=== PATIENT | female | born 1985 | race Caucasian/White ===

== ENCOUNTER 2018-06-08 13:06 | Inpatient (IN) | payer OTHER ==
[~2018-06-08] VITALS: Ht 157.5 cm; Wt 52.9 kg
[~2018-06-08 13:06] MED LIST: [UNRECOGNIZED DRUG - OTHER]
[2018-06-08 16:37] VITALS: BP 117/69
[2018-06-08] MEDS ORDERED: TYLENOL REGULA325 MG PO (17:38)
[2018-06-08] MEDS ORDERED: ELIQUIS5 MG PO (17:41)
[2018-06-08] MEDS ORDERED: PEPCID20 MG PO (17:42)
[2018-06-08] MEDS ORDERED: NEURONTIN300 MG PO (17:43)
[2018-06-08] MEDS ORDERED: ZOSYN 3.373.375 GM/5 IV (17:45)
[2018-06-08] MEDS ORDERED: SYNTHROID75 MCG PO (17:46)
[2018-06-08] MEDS ORDERED: OXYCODONE HCL10 MG PO (17:47)
[2018-06-08] MEDS ORDERED: LUBRICANT EYE D10 ML BOTH EYES (17:50)
[2018-06-08] MEDS ORDERED: MIRALAX17 GM PO (17:51)
[2018-06-08] MEDS ORDERED: NICODERM CQ1 EACH TD (17:53)
[2018-06-08] MEDS ORDERED: WELLBUTRIN XL300 MG PO (17:53)
[2018-06-08 23:33] VITALS: BP 120/67
[2018-06-09 05:19] VITALS: BP 119/83
[2018-06-09 06:57] LABS: HEMOGLOBIN 13.8 G/DL (11.9-15.5); MCH 28.6 PG (29.0-34.0); MCHC 32.9 G/DL (30.0-36.0); PLATELET COUNT 322 K/uL (156-360); RBC DIS.WIDTH-CV 15.9 % (11.8-14.6); RBC DIS.WIDTH-SD 46.1 % (39-53); RED BLOOD COUNT 4.83 M/uL (3.80-5.20); WHITE BLOOD COUNT 14.8 K/uL (4.1-10.2)
[2018-06-09 07:16] LABS: ALBUMIN 4.2 G/DL (3.2-4.8); ALKALINE PHOSPHATASE 90 IU/L (3-129); ALT (GPT) 114 IU/L (3-49); AST (GOT) 29 IU/L (2-34); CHLORIDE 99 MEQ/L (99-109); CREATININE 0.7 MG/DL (0.6-1.3); GFR ESTIMATE (CALCULATED) > 59 mL/min/; GLUCOSE 89 mg/dL (70-99); POTASSIUM 4.4 MEQ/L (3.7-5.4); SODIUM 136 MEQ/L (136-147); TOTAL PROTEIN 6.6 G/DL (6.4-8.3); UREA NITROGEN (BUN) 18 mg/dL (9-23)
[2018-06-09 15:32] VITALS: BP 121/78
[2018-06-10 05:30] VITALS: BP 115/73
[2018-06-10 15:39] VITALS: BP 112/78
[2018-06-10 15:55] VITALS: BP 150/65
[2018-06-11 04:09] VITALS: BP 120/62
[2018-06-11 05:51] LABS: BASOPHIL (%) 0.2 % (0-1); EOSINOPHIL (%) 2.3 % (0-5); EOSINOPHIL COUNT 0.2 K/uL (0-0.3); HEMOGLOBIN 12.3 G/DL (11.9-15.5); IMMATURE GRANULOCYTE (%) 0.6 % (0.0-0.7); LYMPHOCYTE (%) 28.9 % (15-42); LYMPHOCYTE COUNT 2.6 K/uL (1.0-2.8); MCHC 33.2 G/DL (30.0-36.0); MCV 87.3 FL (83-99); MONOCYTE (%) 10.1 % (3-12); MONOCYTE COUNT 0.9 K/uL (0-0.8); NEUTROPHIL (%) 57.9 % (45-76); NEUTROPHIL COUNT 5.2 K/uL (1.8-6.4); PLATELET COUNT 273 K/uL (156-360); RBC DIS.WIDTH-CV 15.9 % (11.8-14.6); RBC DIS.WIDTH-SD 49.1 % (39-53); RED BLOOD COUNT 4.24 M/uL (3.80-5.20); WHITE BLOOD COUNT 8.9 K/uL (4.1-10.2)
[2018-06-11 06:57] LABS: CHLORIDE 101 MEQ/L (99-109); CREATININE 0.7 MG/DL (0.6-1.3); GFR ESTIMATE (CALCULATED) > 59 mL/min/; GLUCOSE 103 mg/dL (70-99); POTASSIUM 4.1 MEQ/L (3.7-5.4); SODIUM 136 MEQ/L (136-147); UREA NITROGEN (BUN) 14 mg/dL (9-23)
[2018-06-11 15:26] VITALS: BP 126/67
[2018-06-12 05:50] VITALS: BP 127/81
[2018-06-12 15:14] VITALS: BP 120/76
[2018-06-13 04:57] VITALS: BP 134/81
[2018-06-13 15:22] VITALS: BP 117/76
[2018-06-14 06:01] VITALS: BP 118/75
[2018-06-14 15:22] VITALS: BP 125/76
[2018-06-15 06:00] VITALS: BP 105/74
[2018-06-15 16:00] VITALS: BP 118/83
[2018-06-16 05:17] VITALS: BP 112/72
[2018-06-16 06:32] LABS: HEMATOCRIT 37.2 % (36.0-46.0); HEMOGLOBIN 12.1 G/DL (11.9-15.5); MCH 28.7 PG (29.0-34.0); MCHC 32.5 G/DL (30.0-36.0); MCV 88.2 FL (83-99); PLATELET COUNT 243 K/uL (156-360); RBC DIS.WIDTH-CV 15.5 % (11.8-14.6); RBC DIS.WIDTH-SD 49.1 % (39-53); RED BLOOD COUNT 4.22 M/uL (3.80-5.20); WHITE BLOOD COUNT 6.1 K/uL (4.1-10.2)
[2018-06-16 06:58] LABS: ALKALINE PHOSPHATASE 74 IU/L (3-129); ALT (GPT) 37 IU/L (3-49); AST (GOT) 24 IU/L (2-34); CHLORIDE 103 MEQ/L (99-109); CREATININE 0.7 MG/DL (0.6-1.3); GFR ESTIMATE (CALCULATED) > 59 mL/min/; GLUCOSE 94 mg/dL (70-99); SODIUM 137 MEQ/L (136-147); TOTAL PROTEIN 6.1 G/DL (6.4-8.3); UREA NITROGEN (BUN) 14 mg/dL (9-23)
[2018-06-16 07:00] LABS: TOTAL BILIRUBIN 0.7 MG/DL (0.0-1.0)
[2018-06-16 15:56] VITALS: BP 125/87
[2018-06-17 05:16] VITALS: BP 109/67
[2018-06-17 15:48] VITALS: BP 131/78
[2018-06-18 05:54] VITALS: BP 129/87
[2018-06-18 15:07] VITALS: BP 132/88
[2018-06-19 06:25] VITALS: BP 114/81
[2018-06-19 15:27] VITALS: BP 129/65
[2018-06-20 05:14] VITALS: BP 127/86
[2018-06-20 16:00] VITALS: BP 133/87
[2018-06-21 05:02] VITALS: BP 134/76
[2018-06-21 15:48] VITALS: BP 124/77
[2018-06-22 05:06] VITALS: BP 131/83
[2018-06-22 15:41] VITALS: BP 136/88
[2018-06-23 06:34] VITALS: BP 115/84
[2018-06-23 06:38] LABS: INTER. NORMALIZED RATIO 1.1
[2018-06-23 06:40] LABS: PTT 32.8 SEC (25-37)
[2018-06-23 15:55] VITALS: BP 124/60
[2018-06-24 06:06] VITALS: BP 108/68
[2018-06-24 06:35] LABS: HEMATOCRIT 34.6 % (36.0-46.0); HEMOGLOBIN 11.5 G/DL (11.9-15.5); MCHC 33.2 G/DL (30.0-36.0); MCV 87.2 FL (83-99); PLATELET COUNT 223 K/uL (156-360); RBC DIS.WIDTH-CV 14.9 % (11.8-14.6); RBC DIS.WIDTH-SD 47.8 % (39-53); RED BLOOD COUNT 3.97 M/uL (3.80-5.20); WHITE BLOOD COUNT 4.9 K/uL (4.1-10.2)
[2018-06-24 06:59] LABS: ALBUMIN 4.2 G/DL (3.2-4.8); ALKALINE PHOSPHATASE 86 IU/L (3-129); ALT (GPT) 37 IU/L (3-49); AST (GOT) 24 IU/L (2-34); CHLORIDE 104 MEQ/L (99-109); CREATININE 0.6 MG/DL (0.6-1.3); GFR ESTIMATE (CALCULATED) > 59 mL/min/; GLUCOSE 94 mg/dL (70-99); POTASSIUM 3.7 MEQ/L (3.7-5.4); SODIUM 139 MEQ/L (136-147); TOTAL PROTEIN 6.4 G/DL (6.4-8.3); UREA NITROGEN (BUN) 8 mg/dL (9-23)
[2018-06-24 15:17] VITALS: BP 120/72
[2018-06-25 03:40] VITALS: BP 129/70
[2018-06-25] MEDS ORDERED: PEPCID20 MG PO (10:16)
[2018-06-25] MEDS ORDERED: NICODERM CQ1 EACH TD (10:16)
[2018-06-25] MEDS ORDERED: LUBRICANT EYE D10 ML RIGHT EYE (10:16)
[2018-06-25] MEDS ORDERED: SYNTHROID75 MCG PO (10:16)
[2018-06-25] MEDS ORDERED: GABAPENTIN600 MG PO (10:16)
[2018-06-25] MEDS ORDERED: ROXICODONE5 MG PO (15:38)
[2018-06-25 15:46] VITALS: BP 137/74
== END 2018-06-25 16:15 | disposition home health service (06) | DRG 91 ==
LOC: 3WEST 13:06 → ENPENDDIS 06-24 → EDPENDDISDT 06-25 → 3WEST 06-25 16:15
PROVIDERS: Family Medicine Sports Medicine; Physical Medicine & Rehabilitation Pain Medicine; Radiology Diagnostic Radiology
PROC: F07M0ZZ Range of Motion and Joint Mobility Treatment of Musculoskeletal System - Whole Body (ICD-10-PCS; principal; 2018-06-08)
DX: G93.1 Anoxic brain damage, not elsewhere classified (principal); G08 Intracranial and intraspinal phlebitis and thrombophlebitis; I76 Septic arterial embolism; F31.9 Bipolar disorder, unspecified; R26.9 Unspecified abnormalities of gait and mobility; G51.0 Bell's palsy; M62.82 Rhabdomyolysis; M21.371 Foot drop, right foot; E03.9 Hypothyroidism, unspecified; D64.9 Anemia, unspecified; I82.C19 Acute embolism and thrombosis of unspecified internal jugular vein; Z79.01 Long term (current) use of anticoagulants; M62.838 Other muscle spasm; M60.9 Myositis, unspecified; K11.20 Sialoadenitis, unspecified; L03.221 Cellulitis of neck; F17.200 Nicotine dependence, unspecified, uncomplicated; I87.8 Other specified disorders of veins; I80.9 Phlebitis and thrombophlebitis of unspecified site; F60.3 Borderline personality disorder
CPT/HCPCS: 70487; 71045; 73610; 73630; 75989; 80048; 80053; 85025; 85027; 85610; 85651; 85730; 86140; 87641; 92507 GN; 93970; 96125 GN; 97110 GO; 97530 GP; G0515 GN; G0515 GO; J2543; J7050

== ENCOUNTER → 2018-06-25 | Outpatient (CLI) | payer OTHER ==
[~2018-06-25] MED LIST changes: +ELIQUIS5 MG PO; +GABAPENTIN600 MG PO; +LUBRICANT EYE D10 ML BOTH EYES; +LUBRICANT EYE D10 ML RIGHT EYE; +MIRALAX17 GM PO; +NEURONTIN300 MG PO; +NICODERM CQ1 EACH TD; +OXYCODONE HCL10 MG PO; +PEPCID20 MG PO; +ROXICODONE5 MG PO; +SYNTHROID75 MCG PO; +TYLENOL REGULA325 MG PO; +WELLBUTRIN XL300 MG PO; +ZOSYN 3.373.375 GM/5 IV
== END | disposition home or self-care (01) ==
LOC: AMB 14:14
PROC: 02PYX3Z Removal of Infusion Device from Great Vessel, External Approach (ICD-10-PCS; principal; 2018-06-25)
DX: Z45.2 Encounter for adjustment and management of vascular access device (principal); I87.8 Other specified disorders of veins

== ENCOUNTER 2018-06-30 14:47 | Emergency (ER) | payer OTHER ==
[~2018-06-30] VITALS: Ht 157.5 cm; Wt 49.2 kg
[2018-06-30 17:10] LABS: BASOPHIL (%) 0.1 % (0-1); EOSINOPHIL (%) 0.2 % (0-5); HEMATOCRIT 34.2 % (36.0-46.0); HEMOGLOBIN 11.4 G/DL (11.9-15.5); IMMATURE GRANULOCYTE (%) 0.4 % (0.0-0.7); LYMPHOCYTE (%) 16.5 % (15-42); LYMPHOCYTE COUNT 1.8 K/uL (1.0-2.8); MCHC 33.3 G/DL (30.0-36.0); MONOCYTE (%) 6.6 % (3-12); MONOCYTE COUNT 0.7 K/uL (0-0.8); NEUTROPHIL (%) 76.2 % (45-76); NEUTROPHIL COUNT 8.4 K/uL (1.8-6.4); RBC DIS.WIDTH-SD 47.8 % (39-53); RED BLOOD COUNT 3.93 M/uL (3.80-5.20)
[2018-06-30 17:14] LABS: PLATELET COUNT 485 K/uL (156-360)
[2018-06-30 17:18] LABS: CHLORIDE 107 mEq/L (99-109); POTASSIUM 3.3 mEq/L (3.7-5.4); SODIUM 142 mEq/L (136-147)
[2018-06-30 17:20] LABS: GLUCOSE 97 mg/dL (70-99)
[2018-06-30 17:24] LABS: CREATININE 0.7 mg/dL (0.6-1.3); GFR ESTIMATE (CALCULATED) > 59 mL/min/; UREA NITROGEN (BUN) 5 mg/dL (9-23)
[2018-06-30 20:30] VITALS: BP 140/94
[2018-07-01 09:56] LABS: LYME DISEASE SEROLOGY SCREEN NEGATIVE (NEGATIVE)
== END 2018-06-30 21:53 | disposition home or self-care (01) ==
LOC: EME 14:47
PROVIDERS: Emergency Medicine
DX: T40.1X1A Poisoning by heroin, accidental (unintentional), initial encounter (principal); J45.909 Unspecified asthma, uncomplicated; G43.909 Migraine, unspecified, not intractable, without status migrainosus; F31.9 Bipolar disorder, unspecified; F32.9 Major depressive disorder, single episode, unspecified; F17.200 Nicotine dependence, unspecified, uncomplicated
CPT/HCPCS: 80048; 81003; 85025; 86618; 93005; J7030